=== PATIENT | female | born 2005 | race African-American/Black ===

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

== ENCOUNTER 2025-04-09 09:00 | Emergency (ER) | payer OTHER ==
[~2025-04-09] VITALS: Ht 165.1 cm; Wt 99.6 kg
[~2025-04-09 09:00] MED LIST: BISA10SU4 PR; DULC5TAB PO
[2025-04-09 09:02] VITALS: BP 147/68; TEMP 97.2; O2SAT 99
[2025-04-09] MEDS ORDERED: NAPR-837 PO (11:52)
== END 2025-04-09 12:30 | disposition home or self-care (01) ==
LOC: M ED 09:00
DX: M79.644 Pain in right finger(s) (principal); Z79.899 Other long term (current) drug therapy; Z79.1 Long term (current) use of non-steroidal anti-inflammatories (NSAID)